=== PATIENT | male | born 1995 | race Caucasian/White ===

== ENCOUNTER 2020-08-25 19:42 | Emergency (ER) | payer OTHER ==
[~2020-08-25] VITALS: Ht 167.6 cm; Wt 80.3 kg
[2020-08-25 20:20] VITALS: BP 141/92
[2020-08-25] MEDS ORDERED: GAVILAX PO (20:59)
[2020-08-25] MEDS ORDERED: LIDO30CR TP (20:59)
== END 2020-08-25 21:11 | disposition home or self-care (01) ==
LOC: ER 19:48
DX: K60.2 Anal fissure, unspecified (principal); K59.00 Constipation, unspecified; K62.89 Other specified diseases of anus and rectum; Z79.899 Other long term (current) drug therapy